=== PATIENT | female | born 1985 | race Caucasian/White ===

== ENCOUNTER → 2023-05-29 | Outpatient (CLI) | payer OTHER ==
[2023-05-29 09:20] LABS: BASO % 0.4 % (0.0-1.0); EOS # 0.1 10*3/uL (0.0-0.4); EOS % 0.9 % (1.0-4.0); HEMATOCRIT 42.9 % (37.0-47.0); LYMPH # 2.1 10*3/uL (1.3-4.4); LYMPH % 24.1 % (27.0-41.0); MEAN CELL VOLUME 90.1 fl (81.0-99.0); MEAN CORPUSCULAR HGB 29.2 pg (27.0-31.0); MEAN CORPUSCULAR HGB CONC 32.4 g/dl (33.0-37.0); MEAN PLATELET VOLUME 9.3 fl (9.6-12.3); MONO # 0.5 10*3/uL (0.1-1.0); MONO % 5.7 % (3.0-9.0); NEUT # 5.9 10*3/uL (2.3-7.9); NEUT % 68.7 % (47.0-73.0); PLATELET COUNT AUTOMATED 245 10*3/uL (130-400); RED BLOOD COUNT 4.76 10*6/uL (4.10-5.10); WHITE BLOOD COUNT 8.6 10*3/uL (4.8-10.8)
[2023-05-29 09:46] LABS: ALKALINE PHOSPHATASE 86 U/L (46-116); BUN 8 mg/dl (9-23); CHLORIDE 109 mmol/L (98-107); CHOLESTEROL 147 mg/dL (<200); LDL CHOLESTEROL 85 mg/dL (9-159); POTASSIUM 4.4 mmol/L (3.4-5.1); SGPT/ALT 11 U/L (10-49); TOTAL PROTEIN 6.9 gm/dL (6.0-8.0); TRIGLYCERIDES 121 mg/dl (<150)
[2023-05-30 10:07] LABS: RPR REFLEX CHARGE CHG FOR REFLEX
[2023-05-30 16:08] LABS: TREPONEMA PALLIDUM AB Reactive (Non Reactive)
[2023-05-30 20:07] LABS: HEPATITIS C QNT HCV Not Detected IU/mL (.)
== END | disposition home or self-care (01) ==
LOC: LAB 08:30
PROVIDERS: ATTEND Registered Nurse
DX: Z51.81 Encounter for therapeutic drug level monitoring (principal); F11.10 Opioid abuse, uncomplicated